=== PATIENT | male | born 1945 | race Caucasian/White ===

== ENCOUNTER 2025-05-25 07:06 | Day surgery (SDC) | payer MEDICARE, OTHER, SELFPAY ==
--- NOTE | 2025-05-24 12:33 | EKG_ITS ---
[address] [address] Test Date: 2025-05-25 Pat Name: Mauricio Matthew Department: Room: Gender: Male Public Health Inspector: Saida SAM : 1945 Requested By: Order Number: [id number] Reading MD: Raad Arenas MD Measurements Intervals [place] Rate: 63 P: 69 MS: 156 QRS: 17 QRSD: 96 T: 8 QT: 434 QTc: 444 Interpretive Statements Sinus rhythm with premature supraventricular complexes Electronically Signed On 05-25-2025 15:11:33 PST by Raad Arenas MD
[2025-05-25] VITALS (7 sets, daily range): BP systolic 90–116; BP diastolic 50–74; PULSE 62–88; RESP 16; TEMP 36.1–36.2; O2SAT 97–100
--- NOTE | 2025-05-25 07:40 | EKG_ITS ---
[address] [address] Test Date: 2025-05-25 Pat Name: Mauricio Matthew Department: Room: Gender: Male Header Boss: Saida SAM : 1945 Requested By: Order Number: [id number] Reading MD: Raad Arenas MD Measurements Intervals [place] Rate: 85 P: MT: QRS: 15 QRSD: 96 T: -21 QT: 354 QTc: 421 Interpretive Statements Atrial fibrillation with premature ventricular or aberrantly conducted complexes Nonspecific T wave abnormality NO PRIOR TRACING Electronically Signed On 05-25-2025 15:11:16 PST by Raad Arenas MD
[2025-05-25 07:49] LABS: Add Manual Diff / Slide Review NO; Hematocrit 43.8 % (41-53); Hemoglobin 14.8 g/dL (13.5-17.5); Lymphocytes Absolute Auto 2600 /uL (1100-4500); Mean Corpuscular HGB Conc 33.9 % (30-36); Mean Corpuscular Hemoglobin 32.0 PG (26-34); Mean Corpuscular Volume 94.5 fL (80-100); Platelet Count 234 X10^3/uL (150-400)
[2025-05-25 08:00] LABS: Alanine Aminotransferase 22 IU/L (<50); Albumin 4.4 g/dL (3.5-5.0); Albumin Globulin Ratio 1.2 (1.0-2.8); Alkaline Phosphatase 47 U/L (38-126); Blood Urea Nitrogen 28 mg/dL (9-20); Calcium 8.8 mg/dL (8.4-10.2); Carbon Dioxide 24 mmol/L (22-32); Chloride 109 mmol/L (98-107); Estimated Glomerular Filt Rate 54 mL/min (>60); Globulin 3.7 g/dL (1.7-4.1); Glucose 108 mg/dL (70-99); Potassium 4.2 mmol/L (3.4-5.1); Sodium 144 mmol/L (137-145); Total Protein 8.1 g/dL (6.3-8.2)
[2025-05-25 08:01] LABS: HEMOLYSIS 113 (0-50)
--- NOTE | 2025-05-25 09:03 | P.PCN_ITS ---
Procedures Date/Time Date of procedure: 05/25/25 Time of procedure: 09:04 General Procedure description: Cardioversion Consent: Patient was explained risks and benefits of the procedure and informed signed consent was obtained. procedure: Patient was brought to the procedure room and placed on the table. IV line was established patient was placed on oxygen and monitored closely. IV conscious sedation was administered by the anesthesiologist present in the. After making sure the patient does deep conscious sedation 150 joules of direct biphasic current was administered. Patient did not convert to sinus rhythm. A 2nd attempt with 200 joules was administered. Patient did not convert to sinus rhythm. At that point I changed the position of the patient and placed pressure on the anterior pacing pad. Two hundred joules of DC current was administered and he converted to sinus rhythm and maintain sinus rhythm. Propofol dose: Per anesthesia postprocedure EKG showed normal sinus rhythm. IMPRESSION: Successful elective cardioversion. POSTPROCEDURE INSTRUCTIONS GIVEN TO THE PATIENT. . Complications: none Procedural Sedation Presedation evaluation: Pl Time of last PO intake: 10:00 Preparation: conveyor monitor applied, pulse oximeter, capnometry used, supp lemental O2 applied, reversal agents at bedside, suction/airway equipment at bedside and IV secured IV propofol dose (mg): 60 Patient tolerated procedure: no complications Complications: none Interventions: oxygen applied
--- NOTE | 2025-05-25 09:16 | PM.DS.1 ---
History of Present Illness History of Present Illness Date Patient Seen: 05/25/25 Date of Onset of Symptoms: 05/25/25 Chief complaint: Cardioversion Discharge Providers Provider Date of admission: 05/25/25 Discharge Date: 05/25/25 Primary care physician: YASH Parish Discharge provider: Erlin Montesinos MD Summary Status at Discharge Cognitive/behavioral status at discharge: oriented, confused and at baseline, oriented Time Spent with Patient Time spent: Less than 30 minutes Exam Vital Signs (past 8 hours): - 05/25/25 07:43 05/25/25 08:50 05/25/25 08:55 Temperature 97.2 F L 97.0 F L Pulse Rate 88 65 62 Respiratory Rate 16 16 16 Blood Pressure 116/74 105/64 105/66 Pulse Oximetry 97 98 98 Oxygen Delivery Method Room Air Room Air Nasal Cannula Oxygen Flow Rate 2 05/25/25 09:00 05/25/25 09:05 Temperature Pulse Rate 62 65 Respiratory Rate 16 16 Blood Pressure 90/50 L 102/66 Pulse Oximetry 100 98 Oxygen Delivery Method Room Air Room Air Oxygen Flow Rate Oxygen Delivery Method Room Air Oxygen Flow Rate 2 Const General: cooperative, healthy appearing and comfortable [facility] Head: normal to inspection Eyes General: appearance normal, both eyes and all related structures Neck Neck: normal visual inspection Chest Chest: normal inspection of the chest Resp Effort & Inspection: normal respiratory effort and able to speak in complete sentences Auscultation: clear to auscultation bilaterally Cardio Palpation: normal PMI Rate: regular rate GI Inspection: normal to inspection Objective Labs 05/25/25 07:45 05/25/25 07:45 Labs: Laboratory Results - last 24 hr 05/25/25 07:45 WBC 10.1 RBC 4.63 Hgb 14.8 Hct 43.8 MCV 94.5 MCH 32.0 MCHC 33.9 RDW 13.8 Plt Count 234 Neut % (Auto) 63.7 Lymph % (Auto) 25.3 [place] % (Auto) 7.8 Eos % (Auto) 2.1 Baso % (Auto) 1.1 Neut # (Auto) 6500 Lymph # (Auto) 2600 [place] # (Auto) 800 Eos # (Auto) 200 Baso # (Auto) 100 Sodium 144 Potassium 4.2 Chloride 109 H Carbon Dioxide 24 BUN 28 H Creatinine 1.33 H Estimated GFR 54 L BUN/Creatinine Ratio 21.1 Glucose 108 H Calcium 8.8 Total Bilirubin 0.8 AST 38 ALT 22 Alkaline Phosphatase 47 Total Protein 8.1 Albumin 4.4 Globulin 3.7 Albumin/Globulin Ratio 1.2 [facility] Medical History (Updated 05/24/25 @ 12:21 by Sahra Atkins, RN) Hypertension Aneurysm of right common iliac artery Heart failure Hyperlipidemia Prostate cancer TIA (transient ischemic attack) Atrial fibrillation Social History Smoking Status: Never smoker Discharge Assessment & Plan Assessment and Plan Assessment: STATUS POST CARDIOVERSION: PATIENT IN SINUS RHYTHM Plan of Treatment: FOLLOW-UP IN THE OFFICE 12 LEAD EKG,TAKE MEDICATION PRESCRIBED. NO CHANGES. Discharge Plan Discharge Plan Other facility: Home Transportation: Private vehicle Provider Discharge Comment: Follow up in office. Nursing Discharge Comment: You may resume your regular diet as tolerated and your home medications as previous. Follow up with Dr Montesinos as scheduled in one week. Discharge orders & Medications Prescriptions: No Action losartan 25 mg tablet 25 mg PO DAILY furosemide 20 mg tablet 30 mg PO DAILY metoprolol succinate 25 mg tablet extended release 24 hr 25 mg PO BID rosuvastatin 5 mg tablet 5 mg PO DAILY amiodarone 100 mg tablet 100 mg PO .qod Eliquis 5 mg tablet 5 mg PO BID Follow up/Referrals: Mikal Byrne ARNP [Primary Care Provider, Family Practice] Diet/Activity/Treatments Diet: Diet as Tolerated Visit Report/Discharge Packet Instructions: DI for Cardioversion Print Language: Pakistani Discharge Data Primary Care Provider: Mikal Byrne Attending Provider: Erlin Montesinos
== END 2025-05-25 09:49 | disposition home or self-care (01) ==
PROVIDERS: PCP Nurse Practitioner Family; Referring Provider Nurse Practitioner Family; Visit Provider Internal Medicine Cardiovascular Disease
PROC: 5A2204Z Restoration of Cardiac Rhythm, Single (ICD-10-PCS; CPT 92960; principal; 2025-05-25 09:00)
DX: I48.0 Paroxysmal atrial fibrillation (principal); I11.0 Hypertensive heart disease with heart failure; I50.41 Acute combined systolic (congestive) and diastolic (congestive) heart failure; I34.0 Nonrheumatic mitral (valve) insufficiency; I72.3 Aneurysm of iliac artery; E78.5 Hyperlipidemia, unspecified; Z86.73 Personal history of transient ischemic attack (TIA), and cerebral infarction without residual deficits; Z79.01 Long term (current) use of anticoagulants; Z85.46 Personal history of malignant neoplasm of prostate
CPT/HCPCS: 92960; 80053; 85025; 93005; J2704; J3010

== ENCOUNTER 2025-06-22 06:38 | Day surgery (SDC) | payer MEDICARE, OTHER, SELFPAY ==
[2025-06-20 13:51] VITALS: BMI 26.6
--- NOTE | 2025-06-22 06:00 | EKG_ITS ---
[id number] [address] Test Date: 2025-06-22 Pat Name: Mauricio Matthew Department: Room: Gender: Male Dehydrogenation Operator: Saida SAM : 1945 Requested By: Order Number: [id number] Reading MD: Raad Arenas MD Measurements Intervals [place] Rate: 88 P: VT: QRS: 21 QRSD: 102 T: -15 QT: 400 QTc: 484 Interpretive Statements Atrial fibrillation Prolonged QT Electronically Signed On 06-22-2025 7:26:13 PST by Raad Arenas MD
[2025-06-22 07:13] LABS: Add Manual Diff / Slide Review NO; Hematocrit 45.0 % (41-53); Hemoglobin 15.3 g/dL (13.5-17.5); Lymphocytes Absolute Auto 2100 /uL (1100-4500); Mean Corpuscular HGB Conc 34.0 % (30-36); Mean Corpuscular Hemoglobin 32.1 PG (26-34); Mean Corpuscular Volume 94.6 fL (80-100); Platelet Count 223 X10^3/uL (150-400)
[2025-06-22 07:16] VITALS: BP 112/76; PULSE 90; RESP 16; TEMP 35.9; O2SAT 98
[2025-06-22 07:25] LABS: Blood Urea Nitrogen 29 mg/dL (9-20); Calcium 9.2 mg/dL (8.4-10.2); Carbon Dioxide 25 mmol/L (22-32); Chloride 107 mmol/L (98-107); Estimated Glomerular Filt Rate 55 mL/min (>60); Glucose 110 mg/dL (70-99); HEMOLYSIS 47 (0-50); Potassium 3.5 mmol/L (3.4-5.1); Sodium 144 mmol/L (137-145)
[2025-06-22] MEDS: POTASSIUM CHLORIDE 20 MEQ/15 ML UDC 40 MEQ PO (07:32)
--- NOTE | 2025-06-22 08:06 | EKG_ITS ---
[address] [address] Test Date: 2025-06-22 Pat Name: Mauricio Matthew Department: Room: Gender: Male Consumer Services Consultant: Saida SAM : 1945 Requested By: Order Number: [id number] Reading MD: Raad Arenas MD Measurements Intervals [place] Rate: 72 P: 69 MD: 160 QRS: 26 QRSD: 96 T: 7 QT: 416 QTc: 455 Interpretive Statements Sinus rhythm with premature atrial complexes Electronically Signed On 06-23-2025 10:16:50 PST by Raad Arenas MD
[2025-06-22 08:15] VITALS: BP 97/65; PULSE 65; RESP 16; TEMP 36.2; O2SAT 98
--- NOTE | 2025-06-22 08:18 | PM.PROC.1 ---
Procedures Date/Time Date of procedure: 06/22/25 Time of procedure: 08:18 General Procedure description: Procedural sedation: Pre sedation evaluation was performed. Last p.o. intake was night before the procedure. Patient is currently fasting. Consent: Patient was explained risks benefits and alternatives of the procedure informed signed consent was obtained. Indication: Atrial fibrillation with controlled ventricular rate Procedure: Defibrillation pads were placed on the anterior and posterior chest wall. Deep Conscious sedation was administered by the anesthesiologist is Dr. Larios in the room. Airway heart rate and blood pressure was monitored during the procedure. One hundred fifty joules of biphasic DC current was administered. Patient converted to sinus rhythm without any conversion pause. Airway was managed in the immediate postprocedure. Hemodynamics remained stable. Patient regained consciousness without any complications. 12 lead EKG demonstrated normal sinus rhythm Impression: Successful cardioversion Complications none Postprocedure: Patient tolerated the procedure well. Patient education was given to the patient. Patient is scheduled for a follow-up visit in the office for a postprocedure EKG Complications: none
[2025-06-22 08:20] VITALS: BP 99/67; PULSE 67; RESP 14; O2SAT 98
[2025-06-22 08:25] VITALS: BP 100/74; PULSE 63; RESP 16; O2SAT 98
[2025-06-22 08:30] VITALS: BP 98/66; PULSE 66; RESP 16; O2SAT 98
[2025-06-22 08:38] VITALS: BP 100/68; PULSE 63; RESP 16; O2SAT 100
== END 2025-06-22 08:56 | disposition home or self-care (01) ==
PROVIDERS: PCP Nurse Practitioner Family; Referring Provider Internal Medicine Cardiovascular Disease; Visit Provider Internal Medicine Cardiovascular Disease
PROC: 5A2204Z Restoration of Cardiac Rhythm, Single (ICD-10-PCS; CPT 92960; principal; 2025-06-22 07:45)
DX: I48.0 Paroxysmal atrial fibrillation (principal); I34.0 Nonrheumatic mitral (valve) insufficiency
CPT/HCPCS: 92960; 80048; 85025; 93005; J2704